=== PATIENT | female | born 1965 | race Caucasian/White ===

== ENCOUNTER 2021-01-05 08:56 | Day surgery (SDC) | payer OTHER ==
[2021-01-01 10:30] VITALS: BMI 20.5
[~2021-01-05 08:56] MED LIST: LACTATED RINGERS 1,000 ML IV SCH
[2021-01-05 09:19] VITALS: TEMP 97.8
[2021-01-05] MEDS ORDERED: LIDOCAINE 1% (10MG/ML) FOR IV START INTRADERMA ONE (09:19)
[2021-01-05] MEDS ORDERED: LACTATED RINGERS 1,000 ML IV ONE (09:19)
[2021-01-05] MEDS ORDERED: LIDOCAINE 1% INJ 10MG/ML (20 ML MDV) ONE (09:45)
[2021-01-05] MEDS ORDERED: PROPOFOL 10 MG/ML 20 ML VIAL IV ONE (09:45)
--- NOTE | 2021-01-05 10:26 | P.PCN ---
Date of Procedure: 01/05/21 Description of Procedure: Brief history: Patient is a pleasant 55-year-old female presents for outpatient colonoscopy and EGD for evaluation of symptoms screening for malignant neoplasm: GERD. No prior colonoscopy or EGD reported. Patient is on omeprazole 20 mg daily for reflux. Previously she had been complaining of constipation but recently has had frequent bowel movements. Procedure performed: Esophagogastroduodenoscopy with biopsy Colonoscopy with biopsy and polypectomy Estimated blood loss: Minimal. Preoperative diagnosis: GERD, screening for malignant neoplasm colon, no prior EGD or colonoscopy. Anesthesia: MAC Procedure: After informed consent was obtained from the patient was brought into the endoscopy unit and IV sedation was administered by anesthesia under continuous monitoring. Initially upper endoscopy was done. The Olympus GF 190 video endoscope was inserted into the mouth and esophagus intubated without any difficulty and was gradually advanced into the stomach and duodenum and carefully examined. The bulb and second part of the duodenum appeared normal, With biopsies taken. The scope was then withdrawn into the stomach adequately insufflated with air and upon careful examination the antrum and body, cardia and fundus appeared normal, Except for some mild punctate erythema suggestive of mild gastritis of. The scope was then withdrawn into the esophagus. The GE junction was located at 40 cm to the incisors And biopsy . It appeared regular with no erythema erosions or ulcerations. Rest of the esophagus appeared normal. Patient tolerated the procedure well. At this time the patient continued to remain sedation. Initial digital rectal examination was normal. Olympus CF 190 video colonoscope was then inserted into the rectum and gradually advanced to the cecum without any difficulty. Careful examination was performed as the scope was gradually being withdrawn. The prep was excellent. The cecum, ascending colon, transverse colon, descending colon, sigmoid colon and rectum appeared normal. A few scattered diverticula noted in the sigmoid colon. Diminutive 2 mm sigmoid colon polyp was removed with cold forcep polypectomy. Random biopsies taken of the terminal ileum, right colon and left colon due to altered bowel function. Retroflexion was performed in the rectum and no lesions were noted, moderate internal hemorrhoids seen. Patient tolerated the procedure well. Impression: 1. Mild gastritis. Biopsies of the duodenum, antrum and body and GE junction. 2. Diminutive sigmoid polyp removed with cold forcep polypectomy. Mild sigmoid diverticulosis. Random biopsies taken of the terminal ileum, right colon and left colon. Recommendations: Findings of this examination were discussed with the patient as well as her family. Okay to resume diet. Okay to resume medications. Await pathology from biopsies and polypectomy. Recommend repeat colonoscopy in 7 years for colon polyps any pathology from polypectomy.
[2021-01-05 10:49] VITALS: BP 137/85; PULSE 86; RESP 16
== END 2021-01-05 11:27 | disposition home or self-care (01) ==
LOC: ORWHC2ENDO 08:56
PROVIDERS: ATTEND Internal Medicine
DX: Z12.11 Encounter for screening for malignant neoplasm of colon (principal); D12.5 Benign neoplasm of sigmoid colon; K57.30 Diverticulosis of large intestine without perforation or abscess without bleeding; K64.8 Other hemorrhoids; K29.50 Unspecified chronic gastritis without bleeding; K21.00 Gastro-esophageal reflux disease with esophagitis, without bleeding; K22.8 Other specified diseases of esophagus; K08.409 Partial loss of teeth, unspecified cause, unspecified class; I10 Essential (primary) hypertension; J44.9 Chronic obstructive pulmonary disease, unspecified; F17.210 Nicotine dependence, cigarettes, uncomplicated; R32 Unspecified urinary incontinence; R41.3 Other amnesia; F31.89 Other bipolar disorder; Z87.19 Personal history of other diseases of the digestive system; Z88.7 Allergy status to serum and vaccine; Z79.899 Other long term (current) drug therapy; Z79.51 Long term (current) use of inhaled steroids; Z91.81 History of falling; Z98.890 Other specified postprocedural states; Z98.51 Tubal ligation status
CPT/HCPCS: 88305; 45380; 43239; J2001; J2704